=== PATIENT | male | born 1970 | race Caucasian/White ===

== ENCOUNTER 2021-12-17 09:35 | Outpatient (CLI) | payer OTHER, SELFPAY | END 2021-12-17 09:36 | disposition home or self-care (01) | PROVIDERS: PCP Family Medicine; Visit Provider Family Medicine | DX: K62.5 Hemorrhage of anus and rectum (principal); I10 Essential (primary) hypertension | CPT/HCPCS: 82728 ==

== ENCOUNTER 2022-03-25 08:33 | Emergency (ER) | payer OTHER, SELFPAY ==
[2022-03-25 08:39] VITALS: BP 167/91; PULSE 84; RESP 20; TEMP 36.7; O2SAT 95; BMI 31.9
--- NOTE | 2022-03-25 08:56 | CRLHL7_ITS ---
For Patients: As a result of the Century Cures Act, medical imaging exams and procedure reports are released immediately into your electronic medical record. You may view this report before your referring provider. If you have questions, please contact your health care provider. Indication: Injury Technique: A total of three views of the left shoulder were acquired. Comparison: None Findings: Bones: Alignment is normal. No fractures or bone lesions. Joint spaces: Unremarkable. Soft tissues: Unremarkable. Impression: Normal plain film examination of the left shoulder. Dictated by Pedro Pablo Cobos MD @ 03/25/2022 9:24:20 AM (Electronically Signed)
--- NOTE | 2022-03-25 08:57 | ED.GENADULT ---
HPI - General Adult General Time Seen by Provider: 08:57 Date Seen: 03/25/22 Chief complaint: Extremity Pain/Injury, Upper Stated complaint: Left shoulder injury Time Seen by Provider: 03/25/22 08:41 Source: patient Mode of arrival: ambulatory Limitations: no limitations History of Present Illness HPI narrative: Patient is a 51 year white male presents with an injury to his left shoulder. He had his foot down blocking a door that it closed and hit him on the top of the left shoulder, he was unable to move the shoulder fully but he has diffuse pain over his anterior and lateral shoulder. No point tenderness, he is able to flex extend abduct his shoulder. He has no history of shoulder problem, he is not allergic to medication, he has got normal distal CMS in left upper extremity. Related Data Home Medications Medication Instructions Recorded Confirmed multivitamin (Daily Multi-Vitamin 1 tab PO QDAY 01/09/22 tablet) lisinopril 10 mg tablet 10 mg PO DAILY 03/25/22 03/25/22 Previous Rx's Medication Instructions Recorded ketorolac 10 mg tablet 10 mg PO TID PRN pain 3 days #10 03/25/22 tabs lisinopril 10 mg tablet 10 mg PO QDAY #30 tabs 03/25/22 Allergies Allergy/AdvReac Type Severity Reaction Status Date / Time No Known Drug Allergies Allergy Unverified 03/25/22 08:43 Review of Systems Status of ROS: Reports: 6 or more systems reviewed and unremarkable except as noted in History and below [facility] Medical History (Updated 03/25/22 @ 15:09 by Renata Cooley) Dyslipidemia Hemorrhoids HTN (hypertension) Prediabetes Surgical History (Updated 12/17/21 @ 09:52 by Tawana Lofton MD) History of colonoscopy with polypectomy No history of previous surgery Family History (Updated 12/17/21 @ 09:55 by Tawana Lofton MD) Brother Stroke, Onset Age: 60 Mother Multiple sclerosis Father Diabetes Social History (Updated 12/17/21 @ 09:55 by Tawana Lofton MD) Narrative: , 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[employer], 2 children, does not exercise regularly but active work and active lifestyle, smokes 15 cigarettes a day, 20 pack years, rare use of alcohol, no drug use Smoking Status: Current every day smoker What tobacco products do you use: cigarettes Do you use any of these nicotine containing products: None Second hand tobacco smoke exposure: No How often do you have a drink containing alcohol: monthly or less How many standard drinks containing alcohol do you have on a typical day: 1 or 2 How often do you have six or more drinks on one occasion: Less than monthly AUDIT-C Alcohol total score: 2 Non-prescribed substance use: denies use Exam Narrative: Exam Narrative: Objective: Patient is in no marked distress vital signs show blood pressure slightly elevated Left shoulder exam shows fairly full range of motion but with real hesitation on his part, no AC tenderness, no anterior bicipital tendon tenderness, no bruising or redness of the shoulder distal CMS in the left upper extremities unremarkable Const: Vital Signs, click to edit/add: Vital Signs - 24 hr 03/25/22 08:39 Temperature 98.0 F Pulse Rate [Left] 84 Respiratory Rate 20 Blood Pressure [Ri ght Upper Arm] 167/91 H Pulse Oximetry 95 Oxygen Delivery Me thod Room Air Course Vital Signs Vital signs: Initial Vital Signs Temperature 98.0 F 03/25/22 08:39 Temperature Source Temporal Artery Scan 03/25/22 08:39 Pulse Rate 84 03/25/22 08:39 Respiratory Rate 20 03/25/22 08:39 Blood Pressure 167/91 H 03/25/22 08:39 Blood Pressure Mean 116 03/25/22 08:39 Blood Pressure Position Sitting 03/25/22 08:39 Pulse Oximetry 95 03/25/22 08:39 Oxygen Delivery Method 03/25/22 08:39 Vital Signs Temperature 98.0 F 03/25/22 08:39 Pulse Rate 84 03/25/22 08:39 Respiratory Rate 20 03/25/22 08:39 Blood Pressure 167/91 H 03/25/22 08:39 Pulse Oximetry 95 03/25/22 08:39 Oxygen Delivery Method 03/25/22 08:39 Temperature 98.0 F 03/25/22 08:39 Pulse Rate 84 03/25/22 08:39 Respiratory Rate 20 03/25/22 08:39 Blood Pressure 167/91 H 03/25/22 08:39 Pulse Oximetry 95 03/25/22 08:39 Oxygen Delivery Method 03/25/22 08:39 Medical Decision Making [facility] Narrative Medical decision making narrative: Patient will get an x-ray of the left shoulder, I suspect he just has a soft tissue injury, but need to rule out other abnormality, will get him a sling, have him ice on a regular basis, Toradol 10 mg given now and t.i.d. over the next 3-5 days. Recommend follow-up with primary care in the next 2-3 days for reassessment off work for 3 days. Addendum: By my read his x-rays show looks unremarkable no dislocation no fracture. Sling, ice, off work for 3 days, primary care follow-up at that time, return to work with clearance from primary care. Discharge Plan Discharge Clinical Impression: Acute shoulder pain Patient Disposition: Home, Self-Care Condition: Stable Additional Instructions: Sling for comfort, get out of the sling to 3 times a day to do some gentle arm circles with the arm dangling, Toradol 10 mg t.i.d. p.r.n. over the next 3 days, follow-up with primary care in 3 days, icing on a regular basis 10 minutes 5 times a day if possible over the entire shoulder. Off work for 3 days no written. Activity Level: Light activity Activity Detail: Off work for 3 days until recheck with primary care Discharge Diet: Regular Prescriptions: New ketorolac 10 mg tablet 10 mg PO TID PRN (Reason: pain) 3 Days Qty: 10 0RF No Action lisinopril 10 mg tablet 10 mg PO DAILY Label Comments: TAKE 1 TABLET BY MOUTH ONCE DAILY multivitamin [Daily Multi-Vitamin] Tablet 1 tab PO QDAY lisinopril 10 mg tablet 10 mg PO QDAY Qty: 30 0RF Stand Alone Forms: [employer] Info Instructions
[2022-03-25] MEDS: KETOROLAC 10 MG TABLET PO (09:08)
== END 2022-03-25 09:32 | disposition home or self-care (01) ==
LOC: ED 09:18
PROVIDERS: Emergency Provider Family Medicine
DX: S49.92XA Unspecified injury of left shoulder and upper arm, initial encounter (principal); W20.8XXA Other cause of strike by thrown, projected or falling object, initial encounter; Y93.9 Activity, unspecified; Y92.9 Unspecified place or not applicable; Y99.0 Civilian activity done for income or pay
CPT/HCPCS: 73030; 99283; A9270

== ENCOUNTER 2024-02-16 15:13 | Outpatient (CLI) | payer OTHER, SELFPAY | END 2024-02-16 15:14 | disposition home or self-care (01) | LOC: NFLDREF 15:14 | PROVIDERS: PCP Family Medicine; Visit Provider Family Medicine | DX: I10 Essential (primary) hypertension (principal); E78.5 Hyperlipidemia, unspecified; E88.810 Metabolic syndrome | CPT/HCPCS: 80048 ==

== ENCOUNTER 2024-03-06 08:11 | Outpatient (CLI) | payer OTHER, SELFPAY | END 2024-03-06 08:12 | disposition home or self-care (01) | LOC: NFLDREF 03-08 13:43 | PROVIDERS: PCP Family Medicine; Referring Provider Family Medicine; Visit Provider Family Medicine | DX: Z00.00 Encounter for general adult medical examination without abnormal findings (principal); I10 Essential (primary) hypertension; E78.5 Hyperlipidemia, unspecified; N40.0 Benign prostatic hyperplasia without lower urinary tract symptoms; E66.9 Obesity, unspecified | CPT/HCPCS: 80048; 80061; 82947; G0103 ==